=== PATIENT | male | born 1945 | race Two or more races ===

== ENCOUNTER 2021-02-02 14:38 | Inpatient (IN) | payer OTHER ==
[~2021-02-02] VITALS: Ht 177.8 cm; Wt 83.9 kg
[2021-02-02] MEDS ORDERED: ZESTRIL2.5 MG (14:50)
[2021-02-02] MEDS ORDERED: DOK100 MG PO (14:50)
[2021-02-02] MEDS ORDERED: OMEPRAZOLE MAGN20 MG (14:51)
[2021-02-02] MEDS ORDERED: MYSOLINE250 MG (14:51)
== END 2021-02-06 14:11 | disposition home or self-care (01) | DRG 440 ==
LOC: ER 14:38 → SEC-K 21:34 → MEDI 02-03 10:34
PROVIDERS: ADMIT Internal Medicine; ATTEND Internal Medicine
PROC: 0DJ08ZZ Inspection of Upper Intestinal Tract, Via Natural or Artificial Opening Endoscopic (ICD-10-PCS; principal; 2021-02-05)
DX: K85.90 Acute pancreatitis without necrosis or infection, unspecified (principal); I10 Essential (primary) hypertension; Z20.822 Contact with and (suspected) exposure to COVID-19

== ENCOUNTER 2022-06-01 11:37 | Emergency (ER) | payer OTHER ==
[~2022-06-01] VITALS: Ht 170.2 cm; Wt 88.9 kg
[~2022-06-01 11:37] MED LIST: DOK100 MG PO; MYSOLINE250 MG; OMEPRAZOLE MAGN20 MG; ZESTRIL5 MG PO
[2022-06-01] MEDS ORDERED: NORFLEX100MG PO (11:46)
[2022-06-01] MEDS ORDERED: NAPROXEN500 MG PO (11:46)
== END 2022-06-01 14:11 | disposition home or self-care (01) ==
LOC: ER 11:37
DX: M54.50 Low back pain, unspecified (principal); I10 Essential (primary) hypertension

== ENCOUNTER 2022-06-03 09:46 | Emergency (ER) | payer OTHER ==
[~2022-06-03] VITALS: Ht 170.2 cm; Wt 88.9 kg
[~2022-06-03 09:46] MED LIST changes: +NAPROXEN500 MG PO; +NORFLEX100MG PO
[2022-06-03] MEDS ORDERED: ADULT LOW DOSE81 M1 PO (09:59)
== END 2022-06-03 16:12 | disposition home or self-care (01) ==
LOC: ER 09:46
DX: M54.50 Low back pain, unspecified (principal); Z88.0 Allergy status to penicillin; I10 Essential (primary) hypertension

== ENCOUNTER 2022-06-14 09:42 | Outpatient (CLI) | payer OTHER ==
[~2022-06-14 09:42] MED LIST changes: +ADULT LOW DOSE81 M1 PO
== END 2022-06-14 09:50 | disposition home or self-care (01) ==
LOC: MRI 09:42
PROVIDERS: ATTEND General Practice
DX: M54.9 Dorsalgia, unspecified (principal)
CPT/HCPCS: 72148

== ENCOUNTER 2025-01-23 11:53 | Emergency (ER) | payer OTHER ==
[~2025-01-23] VITALS: Ht 170.2 cm; Wt 91.6 kg
[~2025-01-23 11:53] MED LIST changes: +PEPCID AC20 MG PO
[2025-01-23 12:52] VITALS: BP 145/82; O2SAT 97
[2025-01-23] MEDS ORDERED: TRAMADOL HCL 50 MG TABLET PO STA (14:34)
[2025-01-23] MEDS ORDERED: ACETAMINOPHEN 500 MG GEL..CAP PO ONE (16:15)
[2025-01-23] MEDS ORDERED: ACETAMINOPHEN 500 MG GEL..CAP PO STA (16:17)
[2025-01-23] MEDS ORDERED: KETOROLAC TROMETHAMINE 15 MG VIAL IM STA (18:11)
[2025-01-23] MEDS ORDERED: CYCLOBENZAPRINE5 MG PO (18:29)
[2025-01-23] MEDS ORDERED: DICLOFENAC SODI75 MG PO (18:29)
[2025-01-23] MEDS ORDERED: KETOROLAC TROMETHAMINE 30 MG VIAL ONE (19:13)
== END 2025-01-23 20:19 | disposition home or self-care (01) ==
LOC: ER 12:35
DX: S40.012A Contusion of left shoulder, initial encounter (principal); S90.32XA Contusion of left foot, initial encounter; S00.93XA Contusion of unspecified part of head, initial encounter; W18.39XA Other fall on same level, initial encounter; Y93.89 Activity, other specified; Y92.018 Other place in single-family (private) house as the place of occurrence of the external cause; Y99.9 Unspecified external cause status; M77.32 Calcaneal spur, left foot; M20.12 Hallux valgus (acquired), left foot; M85.872 Other specified disorders of bone density and structure, left ankle and foot; Z88.0 Allergy status to penicillin

== ENCOUNTER 2025-02-18 20:25 | Emergency (ER) | payer OTHER ==
[~2025-02-18] VITALS: Ht 170.2 cm; Wt 92.5 kg
[~2025-02-18 20:25] MED LIST changes: +CYCLOBENZAPRINE5 MG PO; +DICLOFENAC SODI75 MG PO
[2025-02-18] MEDS ORDERED: MYSOLINE250 MG PO (20:31)
[2025-02-18] MEDS ORDERED: KETOROLAC TROMETHAMINE 30 MG VIAL IM ONE (22:30)
== END 2025-02-18 23:59 | disposition home or self-care (01) ==
LOC: ER 20:25
DX: M62.838 Other muscle spasm (principal); M77.8 Other enthesopathies, not elsewhere classified; I10 Essential (primary) hypertension; Z88.0 Allergy status to penicillin